=== PATIENT | female | born 1985 | race Caucasian/White ===

== ENCOUNTER → 2021-04-10 12:08 | Outpatient (CLI) | payer OTHER, SELFPAY ==
[2021-04-10 15:55] LABS: Follicle Stimulating Hormone 6.2 mIU/mL; Luteinizing Hormone 5.8 mIU/mL; T4 Free Direct 0.82 ng/dL (0.76-1.46)
[2021-04-12 15:33] LABS: Thyroid Peroxidase AB < 8 IU/mL (0-34)
== END ==
PROVIDERS: PCP Registered Nurse; Referring Provider Internal Medicine Endocrinology, Diabetes & Metabolism; Visit Provider Internal Medicine Endocrinology, Diabetes & Metabolism
DX: E88.81 Metabolic syndrome and other insulin resistance (principal); R94.6 Abnormal results of thyroid function studies
CPT/HCPCS: 36415; 83001; 83002; 84439; 84443; 86376